=== PATIENT | female | born 1965 | race Caucasian/White ===

== ENCOUNTER 2018-12-08 10:59 | Emergency (ER) | payer OTHER ==
[~2018-12-08] VITALS: Ht 157.5 cm; Wt 52.2 kg
[2018-12-08 11:03] VITALS: BP 157/109
--- NOTE | 2018-12-08 11:15 | NUR ---
Patient ambulated to bed 3. RN evaluating patient at bedside.
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
--- NOTE | 2018-12-08 11:37 | NUR ---
CALLED [facility] SPOKE TO DISPATCH [facility] " PT TO COME TO [facility] IF SHE WOULD LIKE TO MAKE A REPORT"
[2018-12-08] MEDS ORDERED: NEOMYCIN/POLYMYXIN/BACITRACIN 0.9 GM/1 PKT TP ONE (11:50)
[2018-12-08] MEDS ORDERED: cefTRIAXone 1,000 MG in LIDOCAINE 1% ***ER ONLY *** 2.1 ML IM ONE (11:50)
[2018-12-08] MEDS ORDERED: LIDOCAINE 1% 500 MG/50 ML VIAL INJ ONE (11:50)
[2018-12-08] MEDS ORDERED: IBUPROFEN 600 MG TAB PO ONE (11:50)
[2018-12-08] MEDS ORDERED: cefTRIAXone 1,000 MG VIAL ONE (12:12)
[2018-12-08] MEDS ORDERED: LIDOCAINE MPF 1% 5mL VIAL ONE (12:14)
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
--- NOTE | 2018-12-08 14:15 | NUR ---
Patient taken to CT scan by
--- NOTE | 2018-12-08 15:10 | NUR ---
Patient transferred to chair D to wait for discharge paperwork.
[2018-12-08 15:22] VITALS: BP 125/72
--- NOTE | 2018-12-08 15:22 | NUR ---
Patient discharged with v/s stable. Written and verbal after care instructions given and explained. Patient alert, oriented and verbalized understanding of instructions. Ambulatory with steady gait. All questions addressed prior to discharge. ID band removed. Patient advised to follow up with PMD. Rx of MOTRIN AND KEFLEX given. Patient educated on indication of medication including possible reaction and side effects. Opportunity to ask questions provided and answered.
== END 2018-12-08 15:22 | disposition home or self-care (01) ==
LOC: MED 10:59
DX: S01.81XA Laceration without foreign body of other part of head, initial encounter (principal); Z88.5 Allergy status to narcotic agent; Y04.0XXA Assault by unarmed brawl or fight, initial encounter; Y93.89 Activity, other specified; Y92.830 Public park as the place of occurrence of the external cause; Y99.8 Other external cause status
CPT/HCPCS: 12013; 70450; 81025; 90471; 90715; 96372; 99284; J0696; J2001

== ENCOUNTER 2018-12-24 18:17 | Emergency (ER) | payer OTHER ==
[~2018-12-24] VITALS: Ht 160 cm; Wt 54.9 kg
[2018-12-24 18:26] VITALS: BP 193/123
--- NOTE | 2018-12-24 18:29 | NUR ---
TRIAGED TO [facility]
--- NOTE | 2018-12-24 19:40 | NUR ---
TO ER BED 8
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
[2018-12-24] MEDS ORDERED: KETOROLAC 30 MG/ML VIAL IM ONE (20:05)
--- NOTE | 2018-12-24 20:15 | NUR ---
PT TAKEN TO X-RAY VIA WHEELCHAIR BY TECH.
[2018-12-24 21:00] LABS: BARBITURATE, URINE NEG. ng/ml (NEG <=200); BENZODIAZEPINE, URINE NEG. ng/mL (NEG <=200); CANNABINOID, URINE POS. ng/mL (NEG <=50); COCAINE, URINE NEG. ng/mL (NEG <=300); OPIATE, URINE NEG. ng/mL (NEG <=2000); PHENCYCLIDINE SCREEN,URINE NEG. ng/mL (NEG <=25)
--- NOTE | 2018-12-24 21:04 | NUR ---
Patient discharged with v/s stable. Patient acting appropriatly, states she is ready to go home. Patient states pain has decreased to 3/10. Written and verbal after care instructions given and explained. Patient alert, oriented and verbalized understanding of instructions. Ambulatory with steady gait. All questions addressed prior to discharge. ID band removed. Patient advised to follow up with PMD. Rx of Flexeril, Naprosyn, and Lisinopril given. Patient educated on indication of medication including possible reaction and side effects. Opportunity to ask questions provided and answered.
[2018-12-24 21:44] VITALS: BP 182/115
== END 2018-12-24 21:20 | disposition home or self-care (01) ==
LOC: MED 18:17
DX: S16.1XXA Strain of muscle, fascia and tendon at neck level, initial encounter (principal); Z76.0 Encounter for issue of repeat prescription; Z88.5 Allergy status to narcotic agent; Z90.49 Acquired absence of other specified parts of digestive tract; Y04.8XXA Assault by other bodily force, initial encounter; Y93.89 Activity, other specified; Y92.89 Other specified places as the place of occurrence of the external cause; Y99.8 Other external cause status
CPT/HCPCS: 72040; 80305; 81002; 81025; 96372; 99284; J1885